=== PATIENT | male | born 1975 | race Caucasian/White ===

== ENCOUNTER 2020-12-07 11:19 | Inpatient (IN) | payer OTHER ==
[~2020-12-07] VITALS: Ht 188 cm; Wt 74.8 kg
== END 2020-12-09 17:45 | disposition home or self-care (01) | DRG 379 ==
LOC: ER 11:19 → SEC-K 12-08 10:02 → MEDJ 12-08 12:30 → SEC-K 12-08 13:18 → MEDI 12-08 15:31
PROVIDERS: ADMIT Internal Medicine; ATTEND Internal Medicine
PROC: 30233N1 Transfusion of Nonautologous Red Blood Cells into Peripheral Vein, Percutaneous Approach (ICD-10-PCS; principal; 2020-12-07)
PROC: BW21YZZ Computerized Tomography (CT Scan) of Abdomen and Pelvis using Other Contrast (ICD-10-PCS; 2020-12-07)
DX: K57.31 Diverticulosis of large intestine without perforation or abscess with bleeding (principal); K62.5 Hemorrhage of anus and rectum; K64.8 Other hemorrhoids; Z20.822 Contact with and (suspected) exposure to COVID-19; I10 Essential (primary) hypertension